=== PATIENT | female | born 1965 | race Caucasian/White ===

== ENCOUNTER 2023-05-08 07:48 | Outpatient (CLI) | payer OTHER, SELFPAY | END 2023-05-08 07:49 | disposition home or self-care (01) | LOC: NFLDREF 05-09 07:49 | PROVIDERS: PCP Family Medicine; Referring Provider Family Medicine; Visit Provider Family Medicine | DX: Z01.419 Encounter for gynecological examination (general) (routine) without abnormal findings (principal); E78.5 Hyperlipidemia, unspecified; R53.83 Other fatigue; Z86.2 Personal history of diseases of the blood and blood-forming organs and certain disorders involving the immune mechanism; Z87.898 Personal history of other specified conditions; M25.50 Pain in unspecified joint | CPT/HCPCS: 80053; 80061; 84443 ==

== ENCOUNTER 2023-05-19 08:30 | Outpatient (CLI) | payer OTHER, SELFPAY ==
--- NOTE | 2023-05-19 08:45 | MM_ITS ---
Patient: ADEOLA EDWARDS Facility:?[facility] Patient ID:?[id number] Site Patient ID:?[id number]. Site :?[id number] Study:?XRay-Breast Bilateral 3D W/CAD-05/19/2023 8:58:41 AM Ordering Physician:Dion Final Report: BILATERAL SCREENING MAMMOGRAM WITH COMPUTER-AIDED DETECTION AND TOMOSYNTHESIS TECHNIQUE: CC and MLO views were obtained. These mammographic images have been obtained using full-field digital technique. These mammographic images were interpreted with the benefit of computer-aided detection. Breast Tomosynthesis was used in this interpretation. COMPARISON FILM: 09/06/19, 02/11/18, 12/14/15. FINDINGS: The breasts are heterogeneously dense, which may obscure small masses IMPRESSION: There is no radiographic evidence for malignancy. ASSESSMENT: BI-RADS Category 1: Negative RECOMMENDATION: Routine screening mammogram in 1 year. A lay language report of this examination will be provided to the patient. Lobo Presley M.D. Diagnostic Radiologist [email or web address] Transcribed: 1:51 p.mAlysha farley/Dictated by: Lobo Presley MD @ 05/20/2023 11:15:00 AM Signed by:?Lobo Presley MD @05/20/2023 1:52:31 PM (Electronic Signature)
== END 2023-05-19 08:31 | disposition home or self-care (01) ==
LOC: MAMMO 08:31
PROVIDERS: PCP Family Medicine; Visit Provider Family Medicine
DX: Z12.31 Encounter for screening mammogram for malignant neoplasm of breast (principal); R92.2 Inconclusive mammogram
CPT/HCPCS: 77063; 77067